=== PATIENT | female | born 1935 | race Caucasian/White ===

== ENCOUNTER 2017-04-12 18:09 | Emergency (ER) | payer MEDICARE, OTHER ==
[2014-04-19 09:55] VITALS: BMI 20.5
[~2017-04-12 18:09] MED LIST: ACETAMINOPHEN325 MG NG; BACTRIM DS TABL1 TAB PO; HYDROCODON-ACE1 EAC7 PO; LANOXIN250 MCG PO; LOPRESSOR25 MG PO; NEURONTIN 300300 MG PO; RELAFEN500 MG PO; TRANXENE T-TA3.75 MG PO
[2017-04-12 18:51] LABS: BASOPHILS 0.2 % (0-2); EOSINOPHILS 1.3 % (0-7); HEMATOCRIT 36.7 % (36.0-48.0); HEMOGLOBIN 12.3 g/dL (12-16); IMMATURE GRANULOCYTES 0.2 % (0-5); LYMPHOCYTES 29.1 % (15-50); MCH 33.6 pg (26.0-34.0); MCHC 33.5 g/dL (31.0-37.0); MCV 100.3 fL (80.0-100.0); MONOCYTES 8.4 % (2-11); NEUTROPHILS 60.8 % (40-80); RBC 3.66 10x6/uL (4.00-5.40); RDW 13.2 % (11.5-14.5); WBC 5.2 10x3/uL (4.8-10.8)
[2017-04-12 18:52] LABS: PLATELET COUNT 146 10x3/uL (130-400)
[2017-04-12 19:08] LABS: ALBUMIN 3.5 g/dL (3.4-5.0); BILIRUBIN - TOTAL 0.35 mg/dL (0.2-1.3); CALCIUM 8.9 mg/dL (8.5-10.1); CREATININE - SERUM 0.8 mg/dL (0.6-1.3)
[2017-04-12 19:49] LABS: APPEARANCE CLOUDY (CLEAR); BILIRUBIN NEGATIVE (NEGATIVE); COLOR YELLOW (YELLOW); GLUCOSE NEGATIVE (NEGATIVE); KETONE NEGATIVE (NEGATIVE); LEUKOCYTE ESTERASE 2+ (NEGATIVE); NITRITE NEGATIVE (NEGATIVE); PROTEIN NEGATIVE (NEGATIVE); SPECIFIC GRAVITY 1.005 (1.005-1.020); UROBILINOGEN NORMAL (NORMAL)
[2017-04-12 19:50] LABS: BACTERIA FEW /hpf (NONE SEEN); EPITHELIAL CELLS 0-5 /hpf (0-5); RED CELLS - URINE 0-5 /hpf (0-5); WHITE CELLS - URINE 25-50 /hpf (0-5)
== END 2017-04-12 21:39 | disposition home or self-care (01) ==
LOC: D.ER 18:09
PROVIDERS: Emergency Medicine
DX: N39.0 Urinary tract infection, site not specified (principal)

== ENCOUNTER → 2017-04-17 13:29 | Outpatient (CLI) | payer MEDICARE, OTHER ==
[2014-04-19 09:55] VITALS: BMI 20.5
== END | disposition home or self-care (01) ==
LOC: D.MRI 13:29
DX: M54.16 Radiculopathy, lumbar region (principal)